=== PATIENT | male | born 1945 | race Caucasian/White ===

== ENCOUNTER → 2023-08-13 06:20 | Day surgery (SDC) | payer MEDICARE, SELFPAY ==
[2023-08-13 08:31] LABS: Glucose - Point of Care 133 mg/dl (70-99)
== END ==
LOC: GI 06:20
PROVIDERS: ATTENDING PHYSICIAN Internal Medicine Gastroenterology
DX: Z12.11 Encounter for screening for malignant neoplasm of colon (principal); D12.2 Benign neoplasm of ascending colon; D12.3 Benign neoplasm of transverse colon; D17.5 Benign lipomatous neoplasm of intra-abdominal organs; D12.8 Benign neoplasm of rectum; K64.8 Other hemorrhoids; Z86.010 Personal history of colon polyps; Z98.890 Other specified postprocedural states
CPT/HCPCS: 45385; 88305; 82962

== ENCOUNTER 2024-10-29 06:17 | Day surgery (SDC) | payer MEDICARE, SELFPAY ==
[2024-10-29 07:37] LABS: Glucose - Point of Care 107 mg/dl (70-99)
== END 2024-10-29 09:11 | disposition home or self-care (01) ==
LOC: GI 06:17
PROVIDERS: ATTENDING PHYSICIAN Internal Medicine Gastroenterology
DX: Z12.11 Encounter for screening for malignant neoplasm of colon (principal); K57.30 Diverticulosis of large intestine without perforation or abscess without bleeding; K64.8 Other hemorrhoids; K51.40 Inflammatory polyps of colon without complications; K55.20 Angiodysplasia of colon without hemorrhage; Z86.0100 Personal history of colon polyps, unspecified
CPT/HCPCS: 45385; 82962; 88305